=== PATIENT | female | born 1945 ===

== ENCOUNTER 2021-06-23 09:19 | Outpatient (CLI) | payer MEDICARE | END 2021-06-23 09:20 | disposition home or self-care (01) | LOC: CSHMAMMO 09:19 | PROVIDERS: ATTEND Internal Medicine | DX: R92.8 Other abnormal and inconclusive findings on diagnostic imaging of breast (principal); N63.22 Unspecified lump in the left breast, upper inner quadrant | CPT/HCPCS: 76642; 77066; G0279 ==

== ENCOUNTER → 2021-06-27 | Day surgery (SDC) | payer MEDICARE | LOC: CSHULT 09:57 | PROVIDERS: ATTEND Internal Medicine | PROC: 0HBU3ZX Excision of Left Breast, Percutaneous Approach, Diagnostic (ICD-10-PCS; principal; 2021-06-27) | DX: D05.12 Intraductal carcinoma in situ of left breast (principal) | CPT/HCPCS: 19083; 88305; 88341; 88342 ==